=== PATIENT | female | born 1990 | race Caucasian/White ===

== ENCOUNTER 2022-10-24 21:47 | Emergency (ER) | payer MEDICAID, OTHER ==
[~2022-10-24] VITALS: Ht 162.6 cm; Wt 64.0 kg
[2022-10-24 21:54] VITALS: O2SAT 98
[2022-10-24] MEDS ORDERED: METHOCARBAMOL 500MG TABLET PO ONE (22:00)
[2022-10-24] MEDS ORDERED: IBUPROFEN 600MG TABLET PO ONE (22:00)
[2022-10-24] MEDS ORDERED: IBUP-2029 MT (23:30)
[2022-10-24] MEDS ORDERED: METH-653 MT (23:30)
[2022-10-25 02:56] VITALS: BP 126/85; PULSE 71; RESP 18; TEMP 98.1
== END 2022-10-25 03:00 | disposition home or self-care (01) ==
LOC: ER 21:47
DX: S16.1XXA Strain of muscle, fascia and tendon at neck level, initial encounter (principal); S33.5XXA Sprain of ligaments of lumbar spine, initial encounter; S73.102A Unspecified sprain of left hip, initial encounter; V49.49XA Driver injured in collision with other motor vehicles in traffic accident, initial encounter; Y93.89 Activity, other specified; Y92.89 Other specified places as the place of occurrence of the external cause; Y99.8 Other external cause status
CPT/HCPCS: 73502; 81025; 99283